=== PATIENT | male | born 1950 | race Caucasian/White ===

== ENCOUNTER 2025-07-18 07:34 | Outpatient (CLI) | payer MEDICARE ==
[2025-07-18 08:10] LABS: Estimated GFR - POC 53.0
[2025-07-18] MEDS ORDERED: Iopamidol 370 76% 100 ML VIAL ONE (14:29)
== END 2025-07-18 07:35 | disposition home or self-care (01) ==
LOC: CT 07:34
PROVIDERS: ATTEND Specialist
DX: I70.293 Other atherosclerosis of native arteries of extremities, bilateral legs (principal)
CPT/HCPCS: 36415; 75635; 82565; Q9967